=== PATIENT | male | born 1945 | race Caucasian/White ===

== ENCOUNTER 2019-08-13 10:26 | Inpatient (IN) | payer MEDICARE, OTHER ==
[2019-08-13] VITALS (7 sets, daily range): BP systolic 114–130; BP diastolic 70–96
[~2019-08-13] VITALS: Ht 175.3 cm; Wt 89.4 kg
[~2019-08-13 10:26] MED LIST: ASPIRIN CHEW81 MG PO; INDERAL LA60 M1; METFORMIN HCL500 MG PO; SIMVASTATIN5 MG; Z.0.GLUCOPHAGE500 MG; Z.0.ZOCOR20 MG; [UNRECOGNIZED DRUG - OTHER]
[2019-08-13] MEDS ORDERED: LIDOCAINE HCL 1% LOCAL INJ 20 ML VIAL ONE (11:13)
[2019-08-13 11:37] LABS: BASOPHILS % 0.3 % (0.0-1.0); EOSINOPHILS # (AUTO) 0.2 (0.0-0.4); EOSINOPHILS % 2.8 % (0.0-6.0); HEMATOCRIT 42.6 % (38.2-49.6); HEMOGLOBIN 14.3 g/dL (14.0-18.0); LYMPHOCYTES # (AUTO) 1.5 (1.0-3.2); LYMPHOCYTES % 22.4 % (18.0-39.1); MEAN CORPUSCULAR HEMOGLOBIN 30.2 pg (28-32); MEAN CORPUSCULAR HGB CONC 33.6 g/dL (31-35); MEAN CORPUSCULAR VOLUME 89.9 fL (81-99); MONOCYTES # (AUTO) 0.6 (0.2-0.8); MONOCYTES % 8.8 % (4.4-11.3); NEUTROPHILS # (AUTO) 4.2 (2.1-6.9); NEUTROPHILS % 65.1 % (38.7-80.0); PLATELET COUNT 144 x10e3/uL (140-360); RED BLOOD COUNT 4.74 x10e6/uL (4.3-5.7)
[2019-08-13] MEDS ORDERED: BACITRACIN ZINC 0.9GM TP ONE (11:45)
[2019-08-13 11:59] LABS: ALANINE AMINOTRANSFERASE 31 IU/L (0-55); ALBUMIN 3.3 g/dL (3.5-5.0); ALKALINE PHOSPHATASE 84 IU/L (40-150); ANION GAP 11.1 mmol/L (8-16); BLOOD UREA NITROGEN 23 mg/dL (7-26); BUN/CREATININE RATIO 13 (6-25); CALCIUM 9.2 mg/dL (8.4-10.2); CARBON DIOXIDE 25 mmol/L (22-29); CHLORIDE 107 mmol/L (98-107); CREATINE KINASE 36 IU/L (30-200); CREATININE, SERUM 1.72 mg/dL (0.72-1.25); EST GLOMERULAR FILTRATION RATE 39 ML/MIN (60-); GLUCOSE 163 mg/dL (74-118); POTASSIUM 5.1 mmol/L (3.5-5.1); SODIUM 138 mmol/L (136-145)
[2019-08-13 12:24] LABS: CREATINE KINASE MB < 1.00 ng/mL (0-4.3)
[2019-08-13] MEDS ORDERED: IOPAMIDOL 370 MG/ML 200 ML INFUS..BTL INJ ONE (13:04)
[2019-08-13] MEDS ORDERED: SODIUM CHLORIDE 0.9% 50ML 50 ML ONE (13:04)
[2019-08-13] MEDS ORDERED: SODIUM CHLORIDE 0.9% 1000ML 1,000 ML ONE (13:09)
[2019-08-13] MEDS ORDERED: SODIUM CHLORIDE 0.9% 1000ML 1,000 ML IV ONE (13:15)
[2019-08-13] MEDS ORDERED: HEPARIN 25,000 UNIT 1,400 UNIT in DEXTROSE 5% 250ML 250 ML IV SCH (14:00)
[2019-08-13] MEDS ORDERED: HEPARIN SOD (PORCINE) 5,000 UNIT/ML VIAL IV ONE ×3 (14:00→16:15)
[2019-08-13] MEDS ORDERED: MORPHINE SULFATE 2 MG/ML SYR 1ML IV PRN (14:15)
[2019-08-13] MEDS ORDERED: ONDANSETRON HCL INJ 2MG/ML 2ML 2 MG/ML VIAL IV PRN (14:15)
--- NOTE | 2019-08-13 14:17 | Diagnostic Imaging Report ---
Exam: CT pulmonary angiogram Clinical History: Shortness of breath Technique: Helical images of the chest were obtained after IV contrast administration using the pulmonary embolism protocol. Findings: Intraluminal filling defect is noted in the distal right main pulmonary artery extending to both the upper and lower lobe branches. In addition, intraluminal filling defects are also noted in the secondary and tertiary branches of the left upper and lower lobe pulmonary arteries. There is no evidence of pulmonary edema, consolidation, pleural effusion, or pneumothorax. Tracheobronchial tree is clear. There is no evidence of mediastinal or hilar adenopathy. The cardiac size is within normal limits. The great vessels are normal in caliber and configuration. The visualized upper abdominal solid organs are unremarkable. Punctate calcifications are noted in the lateral renal pelvis which may represent nephrolithiasis versus vascular calcifications. Impression: 1. Large bilateral pulmonary emboli. Dr. Riggs of the ER service was notified of the above findings on August 13, 2019 at 1410 hours. Signed by: Dr. Tai Obando MD on 08/13/2019 2:13 PM
--- NOTE | 2019-08-13 14:29 | Diagnostic Imaging Report ---
Exam: Head CT without contrast History: Syncope Comparison studies: None Technique: Axial images were obtained from the skull base to the vertex. Coronal and sagittal images reconstructed from the axial data. Dose modulation, iterative reconstruction, and/or weight based adjustment of the mA/kV was utilized to reduce the radiation dose to as low as reasonably achievable. Radiation dose: Total DLP: 921 mGy*cm. Estimated effective dose: DLP x 0.015 Intravenous contrast: None Findings: Soft tissues: Right anterior prezygomatic soft tissue swelling. No retained hyperdense foreign body. Bones: No fractures, blastic or lytic lesions. Brain sulci: Sulci at the convexity are mildly effaced. Moderately prominent sylvian fissures. Ventricles: Moderately dilated lateral and third ventricles which is nonspecific it may be related to degree of central greater peripheral cortical volume or normal pressure hydrocephalus (NPH) in the appropriate clinical setting. No acute hydrocephalus. Extra-axial spaces: No masses, no fluid collection. Parenchyma: No mass, acute hemorrhage or acute or chronic cortical insults. Sellar/suprasellar region: No abnormalities. Craniocervical junction: Patent foramen magnum. No Chiari one malformation. Incidental findings: Atherosclerotic calcifications in the carotid siphons and intradural vertebral arteries. IMPRESSION: 1. Right anterior prezygomatic soft tissue swelling. No fracture. 2. No acute intracranial abnormalities. 3. Generalized parenchymal volume loss. 4. Nonspecific supratentorial ventriculomegaly. Consider NPH in the appropriate clinical setting. Signed by: Dr. Gordon Byrnes M.D. on 08/13/2019 2:26 PM
[2019-08-13] MEDS ORDERED: HEPARIN IV SCH (15:30)
[2019-08-13] MEDS ORDERED: DEXTROSE 5% IV SCH (15:30)
[2019-08-13] MEDS: HEPARIN 25,000 UNIT 1,400 UNIT in DEXTROSE 5% 250ML 250 ML IV SCH (15:39)
--- OUTSIDE RECORDS SUMMARY | 2019-08-13 15:44 | XMS REPORT ---
Author Author [facility] Address Unknown Phone Unavailable Care Team Providers Care Funeral Planner Name Role Phone VICTOR MANUEL MURPHY Unavailable Unavailable Problems This patient has no known problems. Allergies, Adverse Reactions, Alerts This patient has no known allergies or adverse reactions. Medications This patient has no known medications. Results Test Description Test Time Test Comments Text Results Atomic Results Result Comments CT BRAIN WO 2019-08-13 14:18:00 [facility] [address] [address] Patient Name: NESS MARTIN MR #: [id number] : 1945 Age/Sex: 74/M Req #: [id number] Adm Physician: Ordered by: LEVON RIGGS DO Report #: [id number] Location: ER Room/Bed: Procedure: [id number] CT/CT BRAIN WO Exam Date: 08/13/19 Exam Time: 1330 REPORT STATUS: Signed Exam: Head CT without contrast History: Syncope Comparison studies: None Technique: Axial images were obtained from the skull base to the vertex. Coronal and sagittal images reconstructed from the axial data. Dose modulation, iterative reconstruction, and/or weight based adjustment of the mA/kV was utilized to reduce the radiation dose to as low as reasonably achievable. Radiation dose: Total DLP: 921 mGy*cm. Estimated effective dose: DLP x 0.015 Intravenous contrast: None Findings: Soft tissues: Right anterior prezygomatic soft tissue swelling. No retained hyperdense foreign body. Bones: No fractures, blastic or lytic lesions. Brain sulci: Sulci at the convexity are mildly effaced. Moderately prominent sylvian fissures. Ventricles: Moderately dilated lateral and third ventricles which is nonspecific it may be related to degree of central greater peripheral cortical volume or normal pressure hydrocephalus (NPH) in the appropriate clinical setting. No acute hydrocephalus. Extra-axial spaces: No masses, no fluid collection. Parenchyma: No mass, acute hemorrhage or acute or chronic cortical insults. Sellar/suprasellar region: No abnormalities. Craniocervical junction: Patent foramen magnum. No Chiari one malformation. Incidental findings: Atherosclerotic calcifications in the carotid siphons and intradural vertebral arteries. IMPRESSION: 1. Right anterior prezygomatic soft tissue swelling. No fracture. 2. No acute intracranial abnormalities. 3. Generalized parenchymal volume loss. 4. Nonspecific supratentorial ventriculomegaly. Consider NPH in the appropriate clinical setting. Signed by: Dr. Wilbert Byrnes M.D. on 08/13/2019 2:26 PM Dictated By: WILBERT BYRNES MD 142 Transcribed By: LAUREN on 08/13/19 1426 COPY TO: LEVON RIGGS DO CT CHEST W 2019-08-13 14:08:00 [address] [address] Patient Name: NESS MARTIN MR #: [id number] : 1945 Age/Sex: 74/M Req #: [id number] Adm Physician: Ordered by: LEVON RIGGS DO Report #: [id number] Location: Room/Bed: Procedure: CT/CT CHEST W Exam Date: 08/13/19 Exam Time: 1330 REPORT STATUS: Signed Exam: CT pulmonary angiogram Clinical History: Shortness of b reath Technique: Helical images of the chest were obtained after IV contrast administration using the pulmonary embolism protocol. Findings: Intraluminal filling defect is noted in the distal right main pulmonary artery extending to both the upper and lower lobe branches. In addition, intraluminal filling defects are also noted in the secondary and tertiary branches of the left upper and lower lobe pulmonary arteries. There is no evidence of pulmonary edema, consolidation, pleural effusion, or pneumothorax. Tracheobronchial tree is clear. There is no evidence of mediastinal or hilar adenopathy. The cardiac size is within normal limits. The great vessels are normal in caliber and configuration. The visualized upper abdominal solid organs are unremarkable. Punctate calcifications are noted in the lateral renal pelvis which may represent nephrolithiasis versus vascular calcifications. Impression: 1. Large bilateral pulmonary emboli. Dr. Riggs of the ER service was notified of the above findings on August 13, 2019 at 1410 hours. Signed by: Dr. Tai Obando MD on 08/13/2019 2:13 PM Dictated By: WOODY OBANDO MD 1413 Transcribed By: LAUREN on 08/13/19 1413 COPY TO: LEVON RIGGS DO
[2019-08-13] MEDS: SODIUM CHLORIDE 0.9% 1000ML 1,000 ML IV SCH (16:34)
[2019-08-13] MEDS ORDERED: LISINOPRIL5 MG PO (17:30)
[2019-08-13] MEDS ORDERED: MYSOLINE250 MG PO (17:30)
[2019-08-13] MEDS ORDERED: JANUVIA50 MG PO (17:30)
[2019-08-13] MEDS ORDERED: PROPRANOLOL HCL60 MG PO (17:30)
[2019-08-13] MEDS ORDERED: SIMVASTATIN20 MG PO (17:30)
[2019-08-13] MEDS ORDERED: GLIMEPIRIDE4 MG PO (17:30)
[2019-08-13] MEDS ORDERED: FLOMAX0.4 MG PO (17:30)
[2019-08-13] MEDS ORDERED: OZEMPIC SQ (17:32)
[2019-08-13] MEDS: MORPHINE SULFATE INJ 4 MG/ML INJ 1ML IV PRN (19:55)
--- NOTE | 2019-08-13 21:40 | History and Physical ---
HISTORY OF PRESENT ILLNESS: The patient is a 74-year-old male with past medical history positive for diabetes and hypertension. He collapsed at home, had a cut on his face, had some stitches placed, came to the emergency room. CT of the head did not show any significant abnormalities, but the chest CT showed a massive pulmonary embolism in the right pulmonary artery. The patient was immediately started on IV heparin. REVIEW OF SYSTEMS: CARDIOVASCULAR: No chest pain or palpitation. RESPIRATORY: No shortness of breath. No cough. GASTROINTESTINAL: No nausea or vomiting. No diarrhea. GENITOURINARY: No frequency. No dysuria. ALLERGIES: HE IS ALLERGIC TO SULFA DRUGS. SOCIAL HISTORY: He does not smoke. He does not drink. PAST MEDICAL HISTORY: Hypertension and diabetes. PHYSICAL EXAMINATION: HEART: Showed regular rhythm. Normal S1 and S2 sound. LUNGS: Clear bilaterally. ABDOMEN: Soft. EXTREMITIES: Show no evidence of cyanosis, edema, or trauma associated before. FINAL IMPRESSION: 1. Pulmonary embolism. 2. Syncopal episode. 3. Uncontrolled diabetes mellitus type 2. 4. Hypertension. PLAN OF TREATMENT: We are going to continue the heparin drip. Continue monitoring PT and PTT according to the heparin protocol. Resume home medication except the metformin due to the fact that the patient had a CT recently. Dr. West to be consulted from the Cardiology point of view and Dr. Li from the Pulmonary point of view. The patient going to be admitted to the intensive care unit. Diabetic diet. Continue telemetry. We are going to also consult Dr. Dan, Hematology/Oncology to find out why the patient had a pulmonary embolism. The patient has no evidence of any DVT in the lower extremities either. Time spent around 55 minutes. Discussed with the family and the emergency room physician. MD DA Flores/GOLDY /[id number]
--- NOTE | 2019-08-13 23:11 | Consultation ---
DATE OF CONSULTATION: 08/13/2019 Pulmonary Medicine Consult ADDITIONAL REFERRING PHYSICIAN: Dr. Evans. REASON FOR CONSULT: Pulmonary emboli. HISTORY OF PRESENT ILLNESS: Mr. Gr is a pleasant 74-year-old gentleman with bilateral pulmonary emboli. The patient was in baseline routine level function mostly. Two weeks ago, he was walking when he incurred spontaneous shortness of breath, which was unexpected onset and first time incurred this. However, he was able to continue doing his exertional job without incident. Today, the patient was unsuspecting when he was walking around and he fainted. He had loss of consciousness. The patient injured the right side of his face with laceration periocularly to right cheek. A 2.5 cm length closure was required with stitches. At this point, blood pressure sustained with heart rate 80s to 90s. He underwent CT angiography, which demonstrated bilateral PE of moderate to large burden, 31 mm main pulmonary artery trunk, otherwise unremarkable. History of GERD. No asthma. Allergic rhinitis is perennial. The patient without any herbal medicines. No vitamins. No recent long trips. No history of any significant fractures of lower extremities. The patient did undergo ultraviolet dermatologic screening 2 days ago, for which he has an erythematous forehead and upper cheeks as part of his cancer screening. No history of . PAST MEDICAL HISTORY: GERD, allergic rhinitis, diabetes, hypertension, hyperlipidemia, history of back surgery long ago. MEDICATIONS: Medication list reviewed per the chart record. ALLERGIES: SULFA. SOCIAL HISTORY: No smoking. No drinking. No drugs. 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 He continued to work as [employer] until he retired 5 years ago. His hobbies are with his grandchildren. He lives with his . FAMILY HISTORY: Noncontributory. He has 10 siblings, none of which had pulmonary emboli or DVT that he knows of. REVIEW OF SYSTEMS: GENERAL: No weight changes. OPHTHALMOLOGIC: No double vision. ENT: No mouth ulcers. ENDOCRINE: No known thyroid disease. LUNGS: No hemoptysis. CARDIAC: No heart attack. GI: No constipation. : No blood in urine. DERMATOLOGIC: No chronic rash. NEUROLOGIC: No seizures. PSYCHIATRIC: No depression. OBJECTIVE: VITAL SIGNS: Afebrile, vital signs noted and reviewed per electronic record. Heart rate 80, blood pressure 114/76, oxygen saturation 95%. GENERAL: No distress, calm in bed. HEENT: Normocephalic, posttraumatic with mild swelling to right cheek and right forehead. NECK: Supple. Throat midline. LUNGS: Bilateral air entry, limited, but clear. CARDIOVASCULAR: S1 and S2. No murmurs, rubs, or gallops. ABDOMEN: Soft, nontender. EXTREMITIES: No clubbing. No cyanosis. There is no edema. INTEGUMENT: No rash. No purpura. LABORATORY DATA: Potassium 5.1, BUN 23, creatinine 1.7. White count 7, hematocrit 43, platelets 144. LFTs unremarkable. IMPRESSION AND PLAN: 1. Submassive pulmonary embolism. 2. Syncope due to pulmonary embolism. 3. Allergic rhinitis. 4. Gastroesophageal reflux disease. 5. Hypertension. 6. Diabetes. 7. Chronic kidney disease. 8. Hyperlipidemia. Heparin drip reasonable due to chronic kidney disease. Continue aggressive therapy. Check echocardiogram to stratify his cardiac status. Unclear ramification of the presyncope or at least shortness of breath episode he had 2 weeks ago, but possibility of chronicity of embolic/thrombotic events. As of now, this is a spontaneous pulmonary embolism and without further changes in diagnostics, he will require lifetime anticoagulation. We will follow along closely. Routine cancer screening is indicated and as said he has had colon and prostatic screening. Thank you very much, Dr. Gomez and Dr. Evans, for allowing me a chance to participate in care of Mr. Gr. Please call for questions. MD SNEHAL Carlson/MODL /[id number]
[2019-08-14] VITALS (23 sets, daily range): BP systolic 101–143; BP diastolic 66–113
[2019-08-14] MEDS: MORPHINE SULFATE INJ 4 MG/ML INJ 1ML IV PRN ×2 (00:46→13:20)
[2019-08-14] MEDS: SODIUM CHLORIDE 0.9% 1000ML 1,000 ML IV SCH ×3 (01:22→17:27)
[2019-08-14 03:42] LABS: BASOPHILS % 0.3 % (0.0-1.0); EOSINOPHILS # (AUTO) 0.3 (0.0-0.4); EOSINOPHILS % 3.8 % (0.0-6.0); HEMATOCRIT 36.5 % (38.2-49.6); HEMOGLOBIN 12.5 g/dL (14.0-18.0); LYMPHOCYTES # (AUTO) 2.4 (1.0-3.2); LYMPHOCYTES % 36.2 % (18.0-39.1); MEAN CORPUSCULAR HEMOGLOBIN 30.6 pg (28-32); MEAN CORPUSCULAR HGB CONC 34.2 g/dL (31-35); MEAN CORPUSCULAR VOLUME 89.5 fL (81-99); MONOCYTES # (AUTO) 0.6 (0.2-0.8); NEUTROPHILS # (AUTO) 3.4 (2.1-6.9); NEUTROPHILS % 50.2 % (38.7-80.0); PLATELET COUNT 128 x10e3/uL (140-360); RED BLOOD COUNT 4.08 x10e6/uL (4.3-5.7); RED CELL DISTRIBUTION WIDTH 13.2 % (11.7-14.4)
[2019-08-14 04:01] LABS: CALCIUM 8.4 mg/dL (8.4-10.2); CREATININE, SERUM 1.34 mg/dL (0.72-1.25)
--- NOTE | 2019-08-14 07:00 | NUR ---
Report rec'd from GUIDO Waddell. Patient alert, oriented, resting with NS at 125 and heparin at 1065. Next PTT to be drawn at 0900. Patient with no signs of bleeding, no complaint at present.
--- NOTE | 2019-08-14 08:13 | NUR ---
ECHO done at bedside. Patient sitting up in bed eating breakfast.
--- NOTE | 2019-08-14 09:55 | NUR ---
Patient sitting up in recliner after ambulating to the toilet. Dr Lonny West to bedside; Dr Dan contacted by Dr Lonny West.
[2019-08-14] MEDS: HEPARIN 25,000 UNIT 1,400 UNIT in DEXTROSE 5% 250ML 250 ML IV SCH (10:55)
--- NOTE | 2019-08-14 11:43 | Consultation ---
DATE OF CONSULTATION: Cardiac Consultation REASON FOR CONSULTATION: Evaluate cardiac status, pulmonary embolism, exertional chest pressure, chest tightness, shortness of breath of 4 months duration. HISTORY OF PRESENT ILLNESS: A 74-year-old gentleman in his usual status of health. He is known with longstanding history of diabetes mellitus for the last 30 years, hypertension, and hyperlipidemia. The patient is relatively very active. He is not sedentary at all. His other problem is repeated skin cancer seen several times by Dr. Valencia. Recently, they "painted his face" and they started laser treatment on his skin, but those treatment will last 10 to 15 minutes. During that time, he is not stuck in small compartment or anything like that. Also, he denied having any recent travel. He is very active and is not sedentary at all. For the last 4 months, he is having exertional shortness of breath on exertion with some chest tightness. He does not his usual. However, there were no chest pain and no alarming symptoms. The patient works as [employer] and he had exposure to asbestos during his life. He is retired few years back. Yesterday, after he fed the cat and he went up to sit, he just passed out. He slammed his right face on the nightstand and he injured his knee. He wake up. There is no documented seizure. The patient was brought to this institution. He had laceration, which was sutured. His CT head showed no acute changes. His CT chest showed bilateral pulmonary emboli. Started on heparin. Cardiac consultation is obtained. His echocardiogram showed no right ventricular strain. The patient is seen and examined. He is comfortable. He is in intensive care unit. He denied having any chest pain now. He seems to be comfortable. He is having some discomfort in his face, where he had a fall and his left pelaez. His cardiac symptoms are described above. There is no orthopnea. There is no paroxysmal nocturnal dyspnea. There is no syncope or presyncope. REVIEW OF SYSTEMS: Very very very extensive to all system and will be summarized for clarity. GENERAL: No fever. No chills. No night sweats. No weight loss. No weight gain. No poor appetite. HEENT: No vision problem. No hearing problem. PULMONARY AND CARDIAC: No pleuritic chest pain. No cough. No hemoptysis. No recent travel. Exertional chest pressure, chest tightness and shortness of breath on exertion going on for 4 months. No orthopnea. No paroxysmal nocturnal dyspnea. No palpitation. No syncope or presyncope. GI: No hematemesis. No melena. : No hematuria. No dysuria. MUSCULOSKELETAL: No aches. No pain. SKIN: Easy bruising used to be on aspirin. Stopped because of "whenever I touch, I will bleed under my skin." Several skin lesions, several repeated skin cancer. In fact, the patient had recently painting on his face with ultraviolet treatment. ENDOCRINE: The patient is diabetic, on treatment with no variation in blood sugar. No heat, no cold intolerance. The rest of the systems were negative except for what mentioned above. SOCIAL HISTORY: He is . He is nonsmoker. He is social alcohol drinker. He is retired longshoreman. PAST MEDICAL HISTORY: Hypertension, diabetes mellitus, hyperlipidemia, back surgery, right and left inguinal hernia surgery, skin cancer, LASIK eye surgery, and GERD. HOME MEDICATIONS: Lisinopril 5 mg a day, Inderal LA 60 mg twice a day, Amaryl 4 mg a day, Januvia 50 mg a day, Flomax 0.4 mg a day, and Mysoline 250 mg twice a day. ALLERGIES: SULFA. FAMILY HISTORY: Father of lung cancer at age 65. Mother of septic shock. She was diabetic. She was 67. Nine siblings, 3 brothers and 6 sisters. Two of them are diabetic, but no history of premature coronary artery disease. Five children, 3 sons and 2 daughters. He lost a son at very very young age. PHYSICAL EXAMINATION: GENERAL: Well-built gentleman, in no acute distress. VITAL SIGNS: Height of 5 feet 9 inches, weight of 179 pounds, blood pressure 100/60, heart rate of 80, respiratory rate of 18, and temperature of 98 Fahrenheit. HEENT: Remarkable for skin discoloration over the skin. He was having ultraviolet treatment. There is dressing over the right cheek. NECK: No elevation of jugular venous pulsation. No bruit. CHEST: Clear to auscultation and percussion. HEART: PMI 5th intercostal space. Normal first and second heart sounds. ABDOMEN: Soft with good bowel sounds. No organomegaly. No abdominal bruits. EXTREMITIES: Easy bruising. Over the left pelaez, there is area where there is trauma and the bruise. Pulses are equal. No delay between pulses. No signs of deep venous thrombosis. NEUROLOGIC: Awake, alert, and oriented. Able to move his extremities. SKIN: There are several skin lesions on the face and discoloration of the face from the ultraviolet light. LABORATORY DATA: Sodium of 140, potassium of 4, BUN of 18, creatinine of 1.34, and glucose of 124. White blood cell count of 6.7, hemoglobin 12.5, hematocrit 37%, and platelet count of 128,000. EKG showing normal sinus rhythm, nonspecific ST changes. CT chest showed bilateral pulmonary emboli in the right and left lung. CT head showed no acute changes. IMPRESSION AND PLAN: 1. Bilateral pulmonary emboli with no predisposing factors. This make me worry for cause such as underlying malignancy. 2. Diabetes mellitus. 3. Hypertension. 4. Repeated skin cancer. 5. Four months duration of shortness of breath and tightness rather than chest pain. This unlikely to be manifestation of repeated pulmonary emboli, probably there is another problem, which is coronary artery disease in this gentleman, who has had several risk factor for coronary artery disease. Regardless, the treatment are the same. Now we need to address the pulmonary embolism. He is on heparin, which I will concur with. His echocardiogram showed no right ventricular involvement. We need to look for underlying malignancy and another cause for his pulmonary emboli. We will check venous Doppler. We will resume his beta-fifi when his blood pressure is a little bit better. Pending on his course in the future, further evaluation should be done for his coronary artery disease if no underlying malignancy was found. Prognosis is really related to the cause of his pulmonary embolism and his other problem. We will follow the patient's progression with you. This was long visit for almost 70 minutes with discussion and explanation for the patient. I contacted Dr. Dna to see him of Hematology Service and we discussed the case. MD HAILEY Riley/GOLDY /[id number]
--- NOTE | 2019-08-14 15:07 | NUR ---
PULMONARY MEDICINE Date of encounter: 08/14/19 SUBJECTIVE: tolerating heparin iv ns at 75/ RA fio2 REVIEW OF SYSTEMS: NO headaches, no rash OBJECTIVE: VITAL SIGNS: vital signs noted and reviewed per electronic record GENERAL: No distress, calm in bed. HEENT: Normocephalic, mild swelling to right cheek NECK: Supple. Throat midline. LUNGS: Bilateral air entry, limited, but clear. CARDIOVASCULAR: S1 and S2. No murmurs, rubs, or gallops. ABDOMEN: Soft, nontender. EXTREMITIES: No clubbing. No cyanosis. no edema. INTEGUMENT: No rash. No purpura. LABORATORY DATA: 4.0 k, cr 1.34 wbc 7, hct 37 IMPRESSION AND PLAN: 1. Submassive pulmonary embolism. 2. Syncope with injury, due to pulmonary embolism. 3. Allergic rhinitis. 4. Gastroesophageal reflux disease. 5. Hypertension. 6. Diabetes. 7. Chronic kidney disease. 8. Hyperlipidemia. Heparin drip iv Warfarin per hematology LIfetime need for anticoagulation likely Follow echocardiogram to stratify his cardiac status Thank you very much, Dr. Gomez and Dr. Evans, for allowing me a chance to participate in care of Mr. Gr. Please call for questions.
[2019-08-14 15:48] LABS: INR 0.99; PROTHROMBIN TIME 13.6 seconds (11.9-14.5)
[2019-08-14] MEDS: WARFARIN SOD 5 MG TAB PO SCH (17:26)
[2019-08-14] MEDS ORDERED: HEPARIN 25,000 UNIT DRIP IV ONE (17:59)
[2019-08-15] VITALS (21 sets, daily range): BP systolic 116–140; BP diastolic 67–104
[2019-08-15] MEDS: SODIUM CHLORIDE 0.9% 1000ML 1,000 ML IV SCH ×2 (03:32→19:15)
[2019-08-15 04:15] LABS: BASOPHILS % 0.3 % (0.0-1.0); EOSINOPHILS # (AUTO) 0.3 (0.0-0.4); EOSINOPHILS % 4.2 % (0.0-6.0); HEMATOCRIT 35.4 % (38.2-49.6); HEMOGLOBIN 11.5 g/dL (14.0-18.0); LYMPHOCYTES % 33.2 % (18.0-39.1); MEAN CORPUSCULAR HEMOGLOBIN 29.7 pg (28-32); MEAN CORPUSCULAR HGB CONC 32.5 g/dL (31-35); MEAN CORPUSCULAR VOLUME 91.5 fL (81-99); MONOCYTES # (AUTO) 0.5 (0.2-0.8); MONOCYTES % 8.5 % (4.4-11.3); NEUTROPHILS # (AUTO) 3.3 (2.1-6.9); NEUTROPHILS % 53.6 % (38.7-80.0); PLATELET COUNT 122 x10e3/uL (140-360); RED BLOOD COUNT 3.87 x10e6/uL (4.3-5.7); RED CELL DISTRIBUTION WIDTH 13.2 % (11.7-14.4)
[2019-08-15 04:53] LABS: ALBUMIN 2.7 g/dL (3.5-5.0); ALBUMIN/GLOBULIN RATIO 1.1 (0.8-2.0); CALCIUM 7.8 mg/dL (8.4-10.2); CHOL/HDL RATIO 3.3 (3.9-4.7); CREATININE, SERUM 1.19 mg/dL (0.72-1.25)
[2019-08-15 05:18] LABS: THYROID STIMULATING HORMONE 1.385 uIU/mL (0.350-4.940)
[2019-08-15] MEDS: HEPARIN 25,000 UNIT 1,400 UNIT in DEXTROSE 5% 250ML 250 ML IV SCH (10:00)
--- NOTE | 2019-08-15 16:13 | NUR ---
PULMONARY MEDICINE Date of encounter: 08/15/19 SUBJECTIVE: not dizzy RA fio2 heparin IV NS at 125/hr ivf REVIEW OF SYSTEMS: No headaches, no rash OBJECTIVE: VITAL SIGNS: vital signs noted and reviewed per electronic record GENERAL: No distress, calm in bed. HEENT: Normocephalic, mild swelling to right cheek NECK: Supple. Throat midline. LUNGS: Bilateral air entry, limited, but clear. CARDIOVASCULAR: S1 and S2. No murmurs, rubs, or gallops. ABDOMEN: Soft, nontender. EXTREMITIES: No clubbing. No cyanosis. no edema. INTEGUMENT: No rash. No purpura. LABORATORY DATA: ptt 85. cr 1.19 IMPRESSION AND PLAN: 1. Submassive pulmonary embolism. 2. Syncope with injury, due to pulmonary embolism. 3. Allergic rhinitis. 4. Gastroesophageal reflux disease. 5. Hypertension. 6. Diabetes. 7. Chronic kidney disease. 8. Hyperlipidemia. Heparin drip iv Warfarin loading per hematology Lifetime need for anticoagulation still likely Follow final echocardiogram to stratify his cardiac status - reported no severe right heart strain so far Thank you very much, Dr. Gomez and Dr. Evans, for allowing me a chance to participate in care of Mr. Gr. Please call for questions.
[2019-08-15] MEDS: WARFARIN SOD 5 MG TAB PO SCH (18:02)
[2019-08-16] VITALS (21 sets, daily range): BP systolic 113–139; BP diastolic 66–113
[2019-08-16] MEDS: SODIUM CHLORIDE 0.9% 1000ML 1,000 ML IV SCH ×5 (03:41→21:26)
[2019-08-16] MEDS: MORPHINE SULFATE INJ 4 MG/ML INJ 1ML IV PRN ×2 (03:50→13:04)
[2019-08-16] MEDS ORDERED: HEPARIN 25,000 UNIT DRIP IV ONE (07:42)
--- NOTE | 2019-08-16 09:15 | NUR ---
Dr Dan to bedside; states he needs the HIT (confirmed with Dr Dan via phone) lab he ordered STAT. Spoke with lab and they are attempting to get [facility] to run it STAT as it is a send out. VJ to call back.
--- NOTE | 2019-08-16 10:00 | NUR ---
Dr Dan made aware the HIT lab cannot be done STAT.
[2019-08-16] MEDS ORDERED: OZEMPIC 0.5 MG SQ SCH (10:30)
--- NOTE | 2019-08-16 10:41 | NUR ---
0968 Dr Lonny West to bedside. 101 Dr aKrson Evans to bedside; home meds restarted and orders to transfer to Med Surg with Tele when bed available.
--- NOTE | 2019-08-16 15:00 | NUR ---
Patient awake, alert, and answers orientation questions appropriately.
[2019-08-16] MEDS: WARFARIN SOD 5 MG TAB PO SCH (17:31)
[2019-08-16] MEDS: PROPRANOLOL HCL 60 MG ER CAP PO SCH (17:31)
[2019-08-16] MEDS: PRIMIDONE 250 MG TABLET PO SCH (17:32)
--- NOTE | 2019-08-16 18:20 | NUR ---
Dr Rose at bedside.
--- NOTE | 2019-08-16 20:30 | NUR ---
PTT 62.5. Continue heparin at 765units/hour. PTT in am.
[2019-08-16] MEDS: SIMVASTATIN 20 MG TAB PO SCH (21:26)
[2019-08-16 21:48] LABS: BASOPHILS % 0.4 % (0.0-1.0); EOSINOPHILS # (AUTO) 0.2 (0.0-0.4); EOSINOPHILS % 4.2 % (0.0-6.0); HEMATOCRIT 37.1 % (38.2-49.6); LYMPHOCYTES # (AUTO) 1.4 (1.0-3.2); LYMPHOCYTES % 27.3 % (18.0-39.1); MEAN CORPUSCULAR HEMOGLOBIN 30.2 pg (28-32); MEAN CORPUSCULAR HGB CONC 32.3 g/dL (31-35); MEAN CORPUSCULAR VOLUME 93.5 fL (81-99); MONOCYTES # (AUTO) 0.5 (0.2-0.8); MONOCYTES % 9.2 % (4.4-11.3); NEUTROPHILS % 58.5 % (38.7-80.0); PLATELET COUNT 138 x10e3/uL (140-360); RED BLOOD COUNT 3.97 x10e6/uL (4.3-5.7); RED CELL DISTRIBUTION WIDTH 13.3 % (11.7-14.4)
--- NOTE | 2019-08-16 22:10 | NUR ---
PULMONARY MEDICINE Date of encounter: 08/16/19 SUBJECTIVE: ultrasound leg with right popliteal DVT Oxygen at 2 L/m by nasal cannula heparin drip ongoing Normal saline at 125 REVIEW OF SYSTEMS: No headaches, no rash OBJECTIVE: VITAL SIGNS: vital signs noted and reviewed per electronic record GENERAL: No distress, calm in bed. HEENT: Normocephalic, mild swelling to right cheek NECK: Supple. Throat midline. LUNGS: Bilateral air entry, limited, but clear. CARDIOVASCULAR: S1 and S2. No murmurs, rubs, or gallops. ABDOMEN: Soft, nontender. EXTREMITIES: No clubbing. No cyanosis. no edema. INTEGUMENT: No rash. No purpura. LABORATORY DATA: 4.0 potassium, creatinine 1.2. 6 white count, 35 hematocrit, 122 platelets. IMPRESSION AND PLAN: 1. Submassive pulmonary embolism. 2. Syncope with injury, due to pulmonary embolism. 3. Allergic rhinitis. 4. Gastroesophageal reflux disease. 5. Hypertension. 6. Diabetes. 7. Chronic kidney disease. 8. Hyperlipidemia. Heparin drip iv Warfarin loading continue Lifetime need for anticoagulation apparent echocardiogram - no severe right heart strain so far supplemental oxygen, slow mobilization as tolerated with syncope precautions Thank you very much, Dr. Gomez and Dr. Evans, for allowing me a chance to participate in care of Mr. Gr. Please call for questions
[2019-08-17] VITALS (8 sets, daily range): BP systolic 110–122; BP diastolic 69–76
[2019-08-17 05:04] LABS: BASOPHILS % 0.3 % (0.0-1.0); EOSINOPHILS # (AUTO) 0.3 (0.0-0.4); EOSINOPHILS % 4.5 % (0.0-6.0); HEMATOCRIT 33.3 % (38.2-49.6); LYMPHOCYTES # (AUTO) 1.7 (1.0-3.2); LYMPHOCYTES % 28.5 % (18.0-39.1); MEAN CORPUSCULAR HEMOGLOBIN 30.5 pg (28-32); MEAN CORPUSCULAR VOLUME 92.2 fL (81-99); MONOCYTES # (AUTO) 0.5 (0.2-0.8); MONOCYTES % 8.6 % (4.4-11.3); NEUTROPHILS # (AUTO) 3.4 (2.1-6.9); NEUTROPHILS % 57.8 % (38.7-80.0); PLATELET COUNT 124 x10e3/uL (140-360); RED BLOOD COUNT 3.61 x10e6/uL (4.3-5.7); RED CELL DISTRIBUTION WIDTH 13.5 % (11.7-14.4)
[2019-08-17] MEDS: SODIUM CHLORIDE 0.9% 1000ML 1,000 ML IV SCH ×3 (05:19→19:15)
--- NOTE | 2019-08-17 05:20 | NUR ---
PTT 75.8. Continue heparin drip at 765 units/hr = 7.7 ml/hr. Continue protocol.
[2019-08-17 05:29] LABS: INR 1.08; PROTHROMBIN TIME 14.5 seconds (11.9-14.5)
[2019-08-17 06:47] LABS: EOSINOPHILS % (MANUAL) 3 % (0-7); LYMPHOCYTES % (MANUAL) 26 % (19-48); MONOCYTES % (MANUAL) 7 % (3.4-9.0); NEUTROPHILS % (MANUAL) 64 % (40-74); PLATELET ESTIMATE MODERATELY DECREASED
[2019-08-17 06:48] LABS: PLATELET MORPHOLOGY COMMENT FEW GIANT; RBC MORPHOLOGY COMMENT NORMAL
[2019-08-17] MEDS: GLIMEPIRIDE 2 MG TAB PO SCH (07:38)
[2019-08-17] MEDS: SITAGLIPTIN 100 MG TAB PO SCH (08:01)
[2019-08-17] MEDS: TAMSULOSIN HCL 0.4 MG CAP PO SCH (08:01)
[2019-08-17] MEDS: PRIMIDONE 250 MG TABLET PO SCH ×2 (08:01→17:21)
[2019-08-17] MEDS: LISINOPRIL 2.5 MG TAB PO SCH (08:02)
[2019-08-17] MEDS: PROPRANOLOL HCL 60 MG ER CAP PO SCH ×2 (08:02→17:21)
[2019-08-17] MEDS ORDERED: NON-FORMULARY MEDICATION (Sitagliptin Phosphate (Januvia) 50 MG) PO SCH (09:00)
[2019-08-17] MEDS ORDERED: NON-FORMULARY MEDICATION (Glimepiride 4 MG) PO SCH (09:00)
[2019-08-17] MEDS ORDERED: NON-FORMULARY MEDICATION (Lisinopril 5 MG) PO SCH (09:00)
--- NOTE | 2019-08-17 12:02 | NUR ---
RECEIVED REPORT FROM ABDIEL IN ICU AWAITING FOR PT TO ARRIVE TO FLOOR
--- NOTE | 2019-08-17 12:09 | NUR ---
Pt ambulated in hallway with physical therapy. Dr. Dan ordered PTT q6 hrs, even though patient has been therapeutic on heparin drip. Patient has medical surgical orders tele with O2 monitoring, patient to be transferred to med-surg 102. Report called to nurse.
--- NOTE | 2019-08-17 12:11 | NUR ---
1100- PTT 66.9 at 1100. Continue Heparin at current rate per protocol is therapeutic.
--- NOTE | 2019-08-17 12:40 | NUR ---
RECEIVED PT TO FLOOR [id number] FROM ICU PT IS SITTING UP IN CHAIR RESTING COMFORTABLY LEFT AC BLEEDING REMOVED APPLIED PRESSURE AND GAUZE TAPED AT THIS TIME RIGHT FA 20 WITH HEP AT 765 UNITS/HR AND NS AT 125 TO THE IV. SITE IS CLEAN AND DRY PT IS ON 02 2 L TOLERATING WELL WILL CONTINUE TO MONITOR CLOSELY SIDE RAILSX2, BED WHEELS LOCKED, CALL LIGHT IS WITHIN EASY REACH, INSTRUCTED TO CALL FOR ASSISTANCE IF NEEDED
[2019-08-17] MEDS: WARFARIN SOD 2.5 MG TAB PO SCH (17:21)
--- NOTE | 2019-08-17 18:32 | NUR ---
PTT IS 61.4 IN THERAPEUTIC RANGE. WILL MAINTAIN RATE 765 UNITS/ HR
[2019-08-17] MEDS: SIMVASTATIN 20 MG TAB PO SCH (20:31)
[2019-08-18] VITALS (9 sets, daily range): BP systolic 111–139; BP diastolic 60–77
[2019-08-18] MEDS: SODIUM CHLORIDE 0.9% 1000ML 1,000 ML IV SCH ×2 (03:00→18:50)
[2019-08-18 06:27] LABS: BASOPHILS % 0.2 % (0.0-1.0); EOSINOPHILS # (AUTO) 0.2 (0.0-0.4); EOSINOPHILS % 4.2 % (0.0-6.0); HEMATOCRIT 32.5 % (38.2-49.6); HEMOGLOBIN 10.7 g/dL (14.0-18.0); LYMPHOCYTES # (AUTO) 1.7 (1.0-3.2); LYMPHOCYTES % 29.3 % (18.0-39.1); MEAN CORPUSCULAR HEMOGLOBIN 30.2 pg (28-32); MEAN CORPUSCULAR HGB CONC 32.9 g/dL (31-35); MEAN CORPUSCULAR VOLUME 91.8 fL (81-99); MONOCYTES # (AUTO) 0.5 (0.2-0.8); MONOCYTES % 8.8 % (4.4-11.3); NEUTROPHILS # (AUTO) 3.2 (2.1-6.9); NEUTROPHILS % 56.8 % (38.7-80.0); PLATELET COUNT 124 x10e3/uL (140-360); RED BLOOD COUNT 3.54 x10e6/uL (4.3-5.7); RED CELL DISTRIBUTION WIDTH 13.2 % (11.7-14.4)
[2019-08-18 06:50] LABS: INR 1.17; PROTHROMBIN TIME 15.5 seconds (11.9-14.5)
[2019-08-18 08:07] LABS: EOSINOPHILS % (MANUAL) 5 % (0-7); LYMPHOCYTES % (MANUAL) 30 % (19-48); MONOCYTES % (MANUAL) 10 % (3.4-9.0); NEUTROPHILS % (MANUAL) 55 % (40-74)
[2019-08-18 08:08] LABS: PLATELET ESTIMATE MODERATELY DECREASED; RBC MORPHOLOGY COMMENT NORMAL
[2019-08-18] MEDS: GLIMEPIRIDE 2 MG TAB PO SCH (08:59)
[2019-08-18] MEDS: TAMSULOSIN HCL 0.4 MG CAP PO SCH (08:59)
[2019-08-18] MEDS: PROPRANOLOL HCL 60 MG ER CAP PO SCH ×2 (09:00→18:52)
[2019-08-18] MEDS: PRIMIDONE 250 MG TABLET PO SCH ×2 (09:03→18:52)
[2019-08-18] MEDS: LISINOPRIL 2.5 MG TAB PO SCH (09:03)
[2019-08-18] MEDS: SITAGLIPTIN 100 MG TAB PO SCH (09:03)
[2019-08-18] MEDS: WARFARIN SOD 2.5 MG TAB PO SCH (18:53)
--- NOTE | 2019-08-18 19:00 | NUR ---
RECEIVED PATIENT IN BEDSIDE REPORT. PATIENT RESTING IN BED AT THIS TIME, NO PAIN REPORTED, NO S&S OF DISTRESS NOTED. BED LOCKED IN LOWEST POSITION, SIDE RAILS UPX2, CALL LIGHT IN REACH.
[2019-08-18] MEDS: SIMVASTATIN 20 MG TAB PO SCH (20:16)
--- NOTE | 2019-08-18 21:29 | NUR ---
PULMONARY MEDICINE Date of encounter: 08/18/19 SUBJECTIVE: heparin drip IVF NS 125/hr diarrhea reported hemorrhoids REVIEW OF SYSTEMS: No headaches, no rash OBJECTIVE: VITAL SIGNS: vital signs noted and reviewed per electronic record GENERAL: No distress, calm in bed. HEENT: Normocephalic, mild swelling to right cheek NECK: Supple. Throat midline. LUNGS: Bilateral air entry, limited, but clear. CARDIOVASCULAR: S1 and S2. No murmurs, rubs, or gallops. ABDOMEN: Soft, nontender. EXTREMITIES: No clubbing. No cyanosis. no edema. INTEGUMENT: No rash. No purpura. LABORATORY DATA: ptt 78 6 wbc, hct 33 IMPRESSION AND PLAN: 1. Submassive pulmonary embolism. 2. Syncope with injury, due to pulmonary embolism. 3. Allergic rhinitis. 4. Gastroesophageal reflux disease. 5. Hypertension. 6. Diabetes. 7. Chronic kidney disease. 8. Hyperlipidemia. Heparin drip IV Warfarin loading continue Lifetime need for anticoagulation apparent echocardiogram - no severe right heart strain supplemental oxygen, slow mobilization as tolerated with syncope precautions decrease IVF Thank you very much, Dr. Gomez and Dr. Evans, for allowing me a chance to participate in care of Mr. Gr. Please call for questions
[2019-08-19] VITALS (7 sets, daily range): BP systolic 117–128; BP diastolic 70–86
[2019-08-19] MEDS: HEPARIN 25,000 UNIT 1,400 UNIT in DEXTROSE 5% 250ML 250 ML IV SCH ×2 (04:50→15:47)
[2019-08-19 06:29] LABS: INR 1.31; PROTHROMBIN TIME 16.9 seconds (11.9-14.5)
[2019-08-19] MEDS: SODIUM CHLORIDE 0.9% 1000ML 1,000 ML IV SCH ×2 (07:43→15:42)
[2019-08-19] MEDS: GLIMEPIRIDE 2 MG TAB PO SCH (07:43)
[2019-08-19] MEDS: PRIMIDONE 250 MG TABLET PO SCH ×2 (10:54→16:05)
[2019-08-19] MEDS: LISINOPRIL 2.5 MG TAB PO SCH (10:55)
[2019-08-19] MEDS: PROPRANOLOL HCL 60 MG ER CAP PO SCH ×2 (10:56→16:05)
[2019-08-19] MEDS: TAMSULOSIN HCL 0.4 MG CAP PO SCH (10:56)
[2019-08-19] MEDS: SITAGLIPTIN 100 MG TAB PO SCH (10:56)
--- NOTE | 2019-08-19 15:54 | NUR ---
Nutrition LOS Note RD Recommendation(s) for Physician / Nutrition Prescription: continue with diet as prescribed Plan of Care: Patient has been screened and assessed for nutrition risk. At this time, the patient does not pose any nutrition risk. No further nutrition intervention is warranted at this time. Will re-evaluate if consulted by medical staff. Nutrition reason for involvement: LOS Primary Dx: Submassive pulmonary embolism PMH: Hypertension and diabetes Ht: 69in Wt: 180lb BMI: 26.6kg/m2 IBW: 160lb +/- 10% RD Assessment: (08/19) 74yo M, who was admitted for pulmonary embolism. Visited pt in the room. Pt reported good appetite with 100% observed lunch intake. No GI complains reported. Pt denied any chewing or swallowing difficulty. No change with diet at home and weight has been stable. Current diet is appropriate and adequate. Malnutrition Evaluation (08/19/19) The patient does not meet criteria for a specified degree of malnutrition at this time. Will re-evaluate at follow-up as appropriate. Diet Education Needs Assessment: Diet education not indicated. Nutrition Care Level: Low Denita Merchant, MS, RD, LD
[2019-08-19] MEDS: WARFARIN SOD 2.5 MG TAB PO SCH (16:04)
--- NOTE | 2019-08-19 17:04 | NUR ---
PULMONARY MEDICINE Date of encounter: 08/19/19 SUBJECTIVE: heparin drip IVF NS 60/hr mobilizing REVIEW OF SYSTEMS: No headaches, no rash OBJECTIVE: VITAL SIGNS: vital signs noted and reviewed per electronic record GENERAL: No distress, calm in bed. HEENT: Normocephalic, mild swelling to right cheek NECK: Supple. Throat midline. LUNGS: Bilateral air entry, limited, but clear. CARDIOVASCULAR: S1 and S2. No murmurs, rubs, or gallops. ABDOMEN: Soft, nontender. EXTREMITIES: No clubbing. No cyanosis. no edema. INTEGUMENT: No rash. No purpura. LABORATORY DATA: ptt 78 IMPRESSION AND PLAN: 1. Submassive pulmonary embolism. 2. Syncope with injury, due to pulmonary embolism. 3. Allergic rhinitis. 4. Gastroesophageal reflux disease. 5. Hypertension. 6. Diabetes. 7. Chronic kidney disease. 8. Hyperlipidemia. Heparin drip IV Warfarin loading continue Lifetime need for anticoagulation apparent echocardiogram - no severe right heart strain supplemental oxygen while convenient, slow mobilization as tolerated with syncope precautions Thank you very much, Dr. Gomez and Dr. Evans, for allowing me a chance to participate in care of Mr. Gr. Please call for questions
--- NOTE | 2019-08-19 19:00 | NUR ---
RECEIVED PATIENT IN BEDSIDE SHIFT REPORT. PATIENT RESTING IN BED AT THIS TIME. NO PAIN REPORTED. NO S&S OF DISTRESS NOTED. IV TO R FA 20G ASYMPTOMATIC, INTACT, AND PATENT, RUNNING NS@60ML/HR AND HEPARIN@7.7ML/HR. NO SIGNS OF BLEEDING NOTED. BED LOCKED IN LOWEST POSITION, SIDE RAILS UPX2, CALL LIGHT IN REACH.
[2019-08-19] MEDS: SIMVASTATIN 20 MG TAB PO SCH (22:00)
[2019-08-20] MEDS: SODIUM CHLORIDE 0.9% 1000ML 1,000 ML IV SCH (00:10)
--- NOTE | 2019-08-20 07:00 | NUR ---
MORNING PTT 93.0 ACCORDING TO PROTOCOL RATE DECREASED BY 100 UNITS/HR HEPARIN DRIP NOW RUNNING AT 665 UNITS/HR NEXT PTT AT 1200
--- NOTE | 2019-08-20 07:09 | NUR ---
DOWNTIME DOCUMENTATION FILED IN PAPER CHART FOR VITAL SIGNS, NURSES NOTES, ASSESSMENT.
--- NOTE | 2019-08-20 07:26 | NUR ---
RECEIVED PATIENT RESTING IN BED NO S/S OF DISTRESS. BED LOW, WHEELS LOCKED, SIDE RAILS X2. CALL LIGHT IN REACH WILL CONTINUE TO MONITOR PATIENT
[2019-08-20 07:39] VITALS: BP 131/74
[2019-08-20] MEDS: TAMSULOSIN HCL 0.4 MG CAP PO SCH (08:15)
[2019-08-20] MEDS: GLIMEPIRIDE 2 MG TAB PO SCH (08:15)
[2019-08-20] MEDS: LISINOPRIL 2.5 MG TAB PO SCH (08:16)
[2019-08-20] MEDS: PROPRANOLOL HCL 60 MG ER CAP PO SCH ×2 (08:16→16:05)
[2019-08-20] MEDS: SITAGLIPTIN 100 MG TAB PO SCH (08:16)
[2019-08-20] MEDS: PRIMIDONE 250 MG TABLET PO SCH ×2 (08:16→16:05)
[2019-08-20 08:32] VITALS: BP 131/74
--- NOTE | 2019-08-20 10:03 | NUR ---
PATIENT A/O X3, EVEN RESPIRATIONS ON 1LNC. BOWEL SOUNDS ACTIVE, NO EDEMA. RIGHT FA 20 GAUGE IV WITH NS @ 60 CC/HR. HEPARIN DRIP INFUSING AT 665 UNITS/HR. PATIENT AMBULATES WITH STANDBY ASSIST. VS STABLE. CALL LIGHT IN REACH WILL CONTINUE TO MONITOR PATIENT.
[2019-08-20 10:11] LABS: INR 1.83; PROTHROMBIN TIME 21.8 seconds (11.9-14.5)
[2019-08-20] MEDS ORDERED: ACETAMINOPHEN 325 MG TAB PO PRN (10:45)
[2019-08-20 11:54] VITALS: BP 136/75
--- NOTE | 2019-08-20 12:26 | NUR ---
PTT 75.9 NO CHANGE IN RATE. HEPARIN DRIP REMAINS AT 665 UNITS/HR.
[2019-08-20 15:29] VITALS: BP 132/77
[2019-08-20] MEDS: WARFARIN SOD 2.5 MG TAB PO SCH (16:04)
--- NOTE | 2019-08-20 17:24 | Consultation ---
DATE OF CONSULTATION: 08/14/2019 HISTORY OF PRESENT ILLNESS: Mr. Gr is a 74-year-old male who presented with acute pulmonary embolus, which was unprovoked, subsequently referred to me for further evaluation and treatment. SOCIAL HISTORY: Noncontributory. FAMILY HISTORY: Noncontributory. ALLERGIES: REPORTED NONE. MEDICATIONS: At this time: 1. Dextrose. 2. Sodium chloride. 3. Ondansetron. 4. Morphine. 5. Heparin. REVIEW OF SYSTEMS: HEENT: Normal. CARDIAC: Normal. RESPIRATORY: Acute pulmonary embolus. GI: Normal. : Normal. MUSCULOSKELETAL: Normal. SKIN: Normal. BREASTS: Normal. NEUROENDOCRINE: Essentially normal. PHYSICAL EXAMINATION: GENERAL: A moderately built male, in distress with shortness of breath, at the present time on oxygen. NECK: No palpable adenopathy. HEART: Within normal limits. LUNGS: Clear. ABDOMEN: Soft. RECTAL: Deferred. CENTRAL NERVOUS SYSTEM: Essentially normal. LABORATORY DATA: Sodium 140, potassium 4.0, chloride 110, CO2 of 20, BUN 18, creatinine 1.34 with a glucose of 124. Hemoglobin 12.5, hematocrit 36.5, white count 6600, platelets 128,000. Bilirubin 0.3, SGOT 31, SGPT 20, alkaline phosphatase 84. The CAT scan shows the patient to have pulmonary emboli. The patient's potassium is 5.1, creatinine initially 1.72, albumin slightly low at 3.3 initially. Nephrolithiasis by CAT scan. IMPRESSION: 1. Acute pulmonary emboli, unprovoked. 2. Compromised renal functions. 3. Transient hyperkalemia. 4. Transient hyperglycemia. 5. Hypoalbuminemia. 6. Nephrolithiasis. PLAN, COMMENTS, AND SUGGESTIONS: Since this is unprovoked, suggest the patient to be on lifetime anticoagulation. Thrombophilia profile would be of academic interest. Thank you very much for allowing me to participate in the management of this patient. MD KJ Toscano/CAESARL /[id number] cc: MD Serge Riley MD George M Nassif, MD
[2019-08-20] MEDS: HEPARIN 25,000 UNIT 1,400 UNIT in DEXTROSE 5% 250ML 250 ML IV SCH (19:15)
--- NOTE | 2019-08-20 19:35 | NUR ---
PTT result 61.7. No change in rate per protocol.
[2019-08-20 20:00] VITALS: BP 127/73
[2019-08-20 20:12] VITALS: BP 127/73
[2019-08-20] MEDS: SIMVASTATIN 20 MG TAB PO SCH (20:32)
--- NOTE | 2019-08-20 23:23 | NUR ---
PULMONARY MEDICINE Date of encounter: 08/20/19 SUBJECTIVE: heparin drip IVF NS 60/hr 2L /min oxygen by NC eating BM REVIEW OF SYSTEMS: No headaches, no rash OBJECTIVE: VITAL SIGNS: vital signs noted and reviewed per electronic record GENERAL: No distress, calm in bed. HEENT: Normocephalic, mild swelling to right cheek NECK: Supple. Throat midline. LUNGS: Bilateral air entry, limited, but clear. CARDIOVASCULAR: S1 and S2. No murmurs, rubs, or gallops. ABDOMEN: Soft, nontender. EXTREMITIES: No clubbing. No cyanosis. no edema. INTEGUMENT: No rash. No purpura. LABORATORY DATA: ptt 93 IMPRESSION AND PLAN: 1. Submassive pulmonary embolism. 2. Syncope with injury, due to pulmonary embolism. 3. Allergic rhinitis. 4. Gastroesophageal reflux disease. 5. Hypertension. 6. Diabetes. 7. Chronic kidney disease. 8. Hyperlipidemia. Heparin drip IV Warfarin loading continue, repeat AM INR Lifetime need for anticoagulation apparent echocardiogram - no severe right heart strain supplemental oxygen while convenient in the hospital, mobilization as tolerated Thank you very much, Dr. Gomez and Dr. Evans, for allowing me a chance to participate in care of Mr. Gr. Please call for questions
[2019-08-21] VITALS (8 sets, daily range): BP systolic 123–136; BP diastolic 72–80
[2019-08-21] MEDS: SODIUM CHLORIDE 0.9% 1000ML 1,000 ML IV SCH ×2 (00:31→06:41)
--- NOTE | 2019-08-21 06:43 | NUR ---
PTT result 79.2 no change with Heparin Drip rate.
--- NOTE | 2019-08-21 07:00 | NUR ---
RECEIVED PATIENT RESTING IN BED NO S/S OF DISTRESS. BED LOW, WHEELS LOCKED, SIDE RAILS X2. CALL LIGHT IN REACH WILL CONTINUE TO MONITOR PATIENT.
[2019-08-21 07:54] LABS: INR 1.83; PROTHROMBIN TIME 21.8 seconds (11.9-14.5)
[2019-08-21] MEDS: TAMSULOSIN HCL 0.4 MG CAP PO SCH (08:42)
[2019-08-21] MEDS: PRIMIDONE 250 MG TABLET PO SCH ×2 (08:42→16:23)
[2019-08-21] MEDS: SITAGLIPTIN 100 MG TAB PO SCH (08:42)
[2019-08-21] MEDS: PROPRANOLOL HCL 60 MG ER CAP PO SCH ×2 (08:42→16:23)
[2019-08-21] MEDS: LISINOPRIL 2.5 MG TAB PO SCH (08:42)
[2019-08-21] MEDS: GLIMEPIRIDE 2 MG TAB PO SCH (08:42)
--- NOTE | 2019-08-21 14:32 | NUR ---
PULMONARY MEDICINE Date of encounter: 08/21/19 SUBJECTIVE: eating well BM heparin IV warfarin on, subtherapeutic REVIEW OF SYSTEMS: No headaches, no rash OBJECTIVE: VITAL SIGNS: vital signs noted and reviewed per electronic record GENERAL: No distress, calm in bed. HEENT: Normocephalic, mild swelling to right cheek NECK: Supple. Throat midline. LUNGS: Bilateral air entry, limited, but clear. CARDIOVASCULAR: S1 and S2. No murmurs, rubs, or gallops. ABDOMEN: Soft, nontender. EXTREMITIES: No clubbing. No cyanosis. no edema. INTEGUMENT: No rash. No purpura. LABORATORY DATA: inr 1.83, ptt 79 IMPRESSION AND PLAN: 1. Submassive pulmonary embolism. 2. Syncope with injury, due to pulmonary embolism. 3. Allergic rhinitis. 4. Gastroesophageal reflux disease. 5. Hypertension. 6. Diabetes. 7. Chronic kidney disease. 8. Hyperlipidemia. Heparin drip IV Warfarin loading continue, repeat AM INR Lifetime need for anticoagulation apparent echocardiogram - no severe right heart strain supplemental oxygen while convenient in the hospital, mobilization as tolerated Thank you very much, Dr. Gomez and Dr. Evans, for allowing me a chance to participate in care of Mr. Gr. Please call for questions
[2019-08-21] MEDS: WARFARIN SOD 2.5 MG TAB PO SCH (16:23)
[2019-08-21 17:07] LABS: BASOPHILS % 0.4 % (0.0-1.0); EOSINOPHILS # (AUTO) 0.3 (0.0-0.4); EOSINOPHILS % 4.9 % (0.0-6.0); HEMOGLOBIN 12.8 g/dL (14.0-18.0); LYMPHOCYTES # (AUTO) 1.7 (1.0-3.2); LYMPHOCYTES % 31.3 % (18.0-39.1); MEAN CORPUSCULAR HEMOGLOBIN 30.2 pg (28-32); MEAN CORPUSCULAR HGB CONC 32.8 g/dL (31-35); MONOCYTES # (AUTO) 0.5 (0.2-0.8); MONOCYTES % 8.9 % (4.4-11.3); NEUTROPHILS # (AUTO) 2.9 (2.1-6.9); NEUTROPHILS % 54.1 % (38.7-80.0); PLATELET COUNT 171 x10e3/uL (140-360); RED BLOOD COUNT 4.24 x10e6/uL (4.3-5.7); RED CELL DISTRIBUTION WIDTH 13.8 % (11.7-14.4)
[2019-08-21 17:16] LABS: INR 1.57; PROTHROMBIN TIME 19.4 seconds (11.9-14.5)
[2019-08-21 17:24] LABS: ANION GAP 11.4 mmol/L (8-16); CALCIUM 9.1 mg/dL (8.4-10.2); CREATININE, SERUM 1.54 mg/dL (0.72-1.25); POTASSIUM 4.4 mmol/L (3.5-5.1)
[2019-08-21] MEDS: HEPARIN 25,000 UNIT 1,400 UNIT in DEXTROSE 5% 250ML 250 ML IV SCH (19:15)
--- NOTE | 2019-08-21 19:15 | NUR ---
Received the pt from morning Rn.pt is lyeing in the bed.aaox3.ambulates.heparin drip is running to right for arm @ 665units/hr.bed locked and in lowest position.phone and call light within reach.instructed to call for assistance as needed.
[2019-08-21] MEDS: SIMVASTATIN 20 MG TAB PO SCH (21:02)
[2019-08-22] VITALS (9 sets, daily range): BP systolic 121–152; BP diastolic 66–78
--- NOTE | 2019-08-22 03:56 | NUR ---
Stitches removed.patient tolerated well.
[2019-08-22 05:47] LABS: BASOPHILS % 0.4 % (0.0-1.0); EOSINOPHILS # (AUTO) 0.3 (0.0-0.4); EOSINOPHILS % 4.9 % (0.0-6.0); HEMATOCRIT 39.2 % (38.2-49.6); LYMPHOCYTES # (AUTO) 1.8 (1.0-3.2); LYMPHOCYTES % 34.3 % (18.0-39.1); MEAN CORPUSCULAR HGB CONC 33.2 g/dL (31-35); MEAN CORPUSCULAR VOLUME 90.5 fL (81-99); MONOCYTES # (AUTO) 0.4 (0.2-0.8); MONOCYTES % 8.1 % (4.4-11.3); NEUTROPHILS # (AUTO) 2.8 (2.1-6.9); NEUTROPHILS % 51.9 % (38.7-80.0); PLATELET COUNT 180 x10e3/uL (140-360); RED BLOOD COUNT 4.33 x10e6/uL (4.3-5.7); RED CELL DISTRIBUTION WIDTH 13.9 % (11.7-14.4)
[2019-08-22 06:35] LABS: ALBUMIN 3.4 g/dL (3.5-5.0); ALBUMIN/GLOBULIN RATIO 1.1 (0.8-2.0); ANION GAP 12.8 mmol/L (8-16); CALCIUM 9.5 mg/dL (8.4-10.2); CREATININE, SERUM 1.43 mg/dL (0.72-1.25); POTASSIUM 3.8 mmol/L (3.5-5.1)
--- NOTE | 2019-08-22 06:57 | NUR ---
BED SIDE SHIFT REPORT GIVEN TO THE ONCOMING RN.STABLE CONDITION.
[2019-08-22 06:59] LABS: INR 1.73; PROTHROMBIN TIME 20.9 seconds (11.9-14.5)
--- NOTE | 2019-08-22 07:00 | NUR ---
MORNING PTT 77.6 NO CHANGE IN RATE ACCORDING TO PROTOCOL HEPARIN DRIP REMAINS AT 665 UNITS/HR NEXT PTT TOMORROW AM
--- NOTE | 2019-08-22 07:15 | NUR ---
RECEIVED PATIENT RESTING IN BED NO SIGNS OF DISTRESS. BED LOW, WHEELS LOCKED, SIDE RAILS X2. CALL LIGHT IN REACH WILL CONTINUE TO MONITOR PATIENT.
[2019-08-22] MEDS: PRIMIDONE 250 MG TABLET PO SCH ×2 (08:01→16:38)
[2019-08-22] MEDS: GLIMEPIRIDE 2 MG TAB PO SCH (08:01)
[2019-08-22] MEDS: PROPRANOLOL HCL 60 MG ER CAP PO SCH ×2 (08:01→16:38)
[2019-08-22] MEDS: TAMSULOSIN HCL 0.4 MG CAP PO SCH (08:01)
[2019-08-22] MEDS: LISINOPRIL 2.5 MG TAB PO SCH (08:01)
[2019-08-22] MEDS: SITAGLIPTIN 100 MG TAB PO SCH (08:01)
[2019-08-22] MEDS ORDERED: OZEMPIC 0.5 MG SQ SCH (10:30)
[2019-08-22] MEDS: HEPARIN 25,000 UNIT 1,400 UNIT in DEXTROSE 5% 250ML 250 ML IV SCH (10:45)
--- NOTE | 2019-08-22 11:00 | NUR ---
PATIENT A/O X3, EVEN RESPIRATIONS ON 1LNC. BOWEL SOUNDS ACTIVE, NO EDEMA. RIGHT FA 20 GAUGE IV WITH HEPARIN DRIP INFUSING AT 665 UNITS/HR. PATIENT AMBULATES WITH STANDBY ASSIST. VS STABLE. CALL LIGHT IN REACH WILL CONTINUE TO MONITOR PATIENT.
[2019-08-22] MEDS: WARFARIN SOD 5 MG TAB PO SCH (16:38)
[2019-08-22] MEDS: SIMVASTATIN 20 MG TAB PO SCH (20:52)
--- NOTE | 2019-08-22 21:40 | NUR ---
PULMONARY MEDICINE Date of encounter: 08/22/19 SUBJECTIVE: eating well BM heparin IV walking, no dizziness nor excess sob REVIEW OF SYSTEMS: No headaches, no rash OBJECTIVE: VITAL SIGNS: vital signs noted and reviewed per electronic record GENERAL: No distress, calm in bed. HEENT: Normocephalic, mild swelling to right cheek NECK: Supple. Throat midline. LUNGS: Bilateral air entry, limited, but clear. CARDIOVASCULAR: S1 and S2. No murmurs, rubs, or gallops. ABDOMEN: Soft, nontender. EXTREMITIES: No clubbing. No cyanosis. no edema. INTEGUMENT: No rash. No purpura. LABORATORY DATA: inr 1.7 IMPRESSION AND PLAN: 1. Submassive pulmonary embolism. 2. Syncope with injury, due to pulmonary embolism. 3. Allergic rhinitis. 4. Gastroesophageal reflux disease. 5. Hypertension. 6. Diabetes. 7. Chronic kidney disease. 8. Hyperlipidemia. Heparin drip IV Warfarin loading continue, repeat AM INR Lifetime need for anticoagulation apparent echocardiogram - no severe right heart strain supplemental oxygen while convenient in the hospital, mobilization as tolerated Thank you very much, Dr. Goemz and Dr. Evans, for allowing me a chance to participate in care of Mr. Gr. Please call for questions
--- NOTE | 2019-08-22 23:04 | NUR ---
Assessment done.no resp.distress.no pain voiced.heparin drip running to right for arm 665units/hr.voided.bed locked and in lowest position.phone and call light within reach.instructed to call for assistance as needed.
[2019-08-23] VITALS (8 sets, daily range): BP systolic 115–128; BP diastolic 65–82
[2019-08-23 06:31] LABS: BASOPHILS % 0.4 % (0.0-1.0); EOSINOPHILS # (AUTO) 0.3 (0.0-0.4); EOSINOPHILS % 5.1 % (0.0-6.0); HEMATOCRIT 39.1 % (38.2-49.6); LYMPHOCYTES # (AUTO) 1.9 (1.0-3.2); MEAN CORPUSCULAR HEMOGLOBIN 30.1 pg (28-32); MEAN CORPUSCULAR HGB CONC 33.2 g/dL (31-35); MEAN CORPUSCULAR VOLUME 90.5 fL (81-99); MONOCYTES # (AUTO) 0.6 (0.2-0.8); MONOCYTES % 10.9 % (4.4-11.3); NEUTROPHILS # (AUTO) 2.6 (2.1-6.9); NEUTROPHILS % 48.1 % (38.7-80.0); PLATELET COUNT 184 x10e3/uL (140-360); RED BLOOD COUNT 4.32 x10e6/uL (4.3-5.7); RED CELL DISTRIBUTION WIDTH 13.8 % (11.7-14.4)
[2019-08-23 06:45] LABS: INR 1.85
[2019-08-23 06:47] LABS: PARTIAL THROMBOPLASTIN TIME 81.3 seconds (23.8-35.5)
[2019-08-23 06:51] LABS: ANION GAP 11.8 mmol/L (8-16); CALCIUM 9.5 mg/dL (8.4-10.2); CREATININE, SERUM 1.56 mg/dL (0.72-1.25); POTASSIUM 3.8 mmol/L (3.5-5.1)
--- NOTE | 2019-08-23 07:05 | NUR ---
Received patient mid fowlers position, side rails upx2, call light within reach. AAOX3 to time, person, place. Respirations even and unlabored. O2 1L NC. Heparin 6.7ml/hr via right FA IV. Instructed to use call light for assistance. Voiced understanding. Will continue to monitor.
--- NOTE | 2019-08-23 07:17 | NUR ---
BED SIDE SHIFT REPORT GIVEN TO THE ONCOMING RN.STABLE CONDITION.
--- NOTE | 2019-08-23 07:42 | NUR ---
PTT81.3. Heparin decreased by 100 units/hour. Heparin now 5.7ml/hr per protocol
[2019-08-23] MEDS ORDERED: ONDANSETRON HCL 4 MG ORAL DISINTEGRATING TAB PO PRN (08:45)
[2019-08-23] MEDS: PROPRANOLOL HCL 60 MG ER CAP PO SCH ×2 (09:03→17:12)
[2019-08-23] MEDS: TAMSULOSIN HCL 0.4 MG CAP PO SCH (09:03)
[2019-08-23] MEDS: LISINOPRIL 2.5 MG TAB PO SCH (09:03)
[2019-08-23] MEDS: SITAGLIPTIN 100 MG TAB PO SCH (09:03)
[2019-08-23] MEDS: PRIMIDONE 250 MG TABLET PO SCH ×2 (09:03→17:12)
[2019-08-23] MEDS: GLIMEPIRIDE 2 MG TAB PO SCH (09:04)
--- NOTE | 2019-08-23 12:40 | NUR ---
PULMONARY MEDICINE Date of encounter: 08/23/19 SUBJECTIVE: heparin iv no bleeding no dizziness when walking on oxygen 2 L/min by nasal cannula REVIEW OF SYSTEMS: No headaches, no rash OBJECTIVE: VITAL SIGNS: vital signs noted and reviewed per electronic record GENERAL: No distress, calm in bed. HEENT: Normocephalic, mild swelling to right cheek NECK: Supple. Throat midline. LUNGS: Bilateral air entry, limited, but clear. CARDIOVASCULAR: S1 and S2. No murmurs, rubs, or gallops. ABDOMEN: Soft, nontender. EXTREMITIES: No clubbing. No cyanosis. no edema. INTEGUMENT: No rash. No purpura. LABORATORY DATA: INR 1.85 IMPRESSION AND PLAN: 1. Submassive pulmonary embolism. 2. Syncope with injury, due to pulmonary embolism. 3. Allergic rhinitis. 4. Gastroesophageal reflux disease. 5. Hypertension. 6. Diabetes. 7. Chronic kidney disease. 8. Hyperlipidemia. Heparin drip IV Warfarin loading continue, repeat AM INR Lifetime anticoagulation echocardiogram - no severe right heart strain supplemental oxygen while convenient in the hospital, mobilization as tolerated Thank you very much, Dr. Gomez and Dr. Evans, for allowing me a chance to participate in care of Mr. Gr. Please call for questions
--- NOTE | 2019-08-23 13:12 | NUR ---
Nutrition follow up note RD Recommendation(s) for Physician / Nutrition Prescription: continue with diet as prescribed Plan of Care: Patient has been screened and assessed for nutrition risk. At this time, the patient does not pose any nutrition risk. No further nutrition intervention is warranted at this time. Will re-evaluate if consulted by medical staff. Nutrition reason for involvement: Diet education consult Primary Dx: Submassive pulmonary embolism PMH: Hypertension and diabetes Ht: 69in Wt: 180lb- admit wt, current wt 197# BMI: 26.6kg/m2 IBW: 160lb +/- 10% RD Assessment: 08/23: Pt seen today per MD consult for Coumadin diet education. Pt receptive to diet education at time of visit. Pt educated on vitamin K sources in diet and high K foods to limit or avoid. Explained the importance of consistent K intake while on Coumadin/Warfarin. Handout provided, all questions addressed at time of visit. Chart reviewed. Labs and meds reviewed. Pt with good po intake and no GI distress. (08/19) 74yo M, who was admitted for pulmonary embolism. Visited pt in the room. Pt reported good appetite with 100% observed lunch intake. No GI complains reported. Pt denied any chewing or swallowing difficulty. No change with diet at home and weight has been stable. Current diet is appropriate and adequate. Malnutrition Evaluation (08/19/19) The patient does not meet criteria for a specified degree of malnutrition at this time. Will re-evaluate at follow-up as appropriate. Diet Education Needs Assessment: Diet education indicated, pt receptive. Learner(s): pt Barriers: none Cultural/Language Modifications: none Readiness: ready Method: handout, discussion Topics: Coumadin, vitamin K foods and recommended intake Understanding/Compliance: good Nutrition Care Level: Low Signed: Nimco Sahni RD, LD, [facility]
--- NOTE | 2019-08-23 14:16 | NUR ---
PTT 56.8. Heparin to continue at 5.7 ml/hr per protocol
[2019-08-23] MEDS: WARFARIN SOD 5 MG TAB PO SCH (17:13)
--- NOTE | 2019-08-23 18:31 | NUR ---
SPO2 95% on Room Air.
--- NOTE | 2019-08-23 19:05 | NUR ---
received report from day nurse. patient is resting comfortably in bed. bed is in lowest position and call light is within reach. will continue to monitor patient.
--- NOTE | 2019-08-23 19:10 | NUR ---
Report given to oncoming nurse of patient's status. Resting in bed, side rails upx2, call light within reach. AAOX4 to time, person, place, situation. Respirations even and unlabored. Dressing to left knee clean, dry, and intact. Addendum: 08/23/19 at 1919 by AYUSH NGUYEN RN error
--- NOTE | 2019-08-23 19:15 | NUR ---
Report given to oncoming nurse of patient's status. Resting in bed, side rails upx2, call light within reach. AAOX4 to time, person, place, situation. Respirations even and unlabored. Heparin 5.7ml/hr via right FA IV. Denies pain
[2019-08-23] MEDS: SIMVASTATIN 20 MG TAB PO SCH (20:22)
[2019-08-24] VITALS: BP 125/70
[2019-08-24] MEDS: HEPARIN 25,000 UNIT 1,400 UNIT in DEXTROSE 5% 250ML 250 ML IV SCH (02:59)
[2019-08-24 04:00] VITALS: BP 120/67
[2019-08-24 05:42] LABS: INR 2.08; PROTHROMBIN TIME 24.1 seconds (11.9-14.5)
--- NOTE | 2019-08-24 06:45 | NUR ---
report given to day nurse. patient is resting comfortably in bed. bed is in lowest position and call light is within reach.
--- NOTE | 2019-08-24 07:05 | NUR ---
Received patient mid fowlers position, side rails upx2, call light within reach. AAOX4 to time, person, place, situation. Respirations even and unlabored. Heparin 5.7ml/hr via right FA IV. Instructed to use call light for assistance. Voiced understanding.
[2019-08-24 07:45] VITALS: BP 123/75
[2019-08-24 07:50] VITALS: BP 123/75
[2019-08-24] MEDS: SITAGLIPTIN 100 MG TAB PO SCH (08:51)
[2019-08-24] MEDS: GLIMEPIRIDE 2 MG TAB PO SCH (08:51)
[2019-08-24] MEDS: PROPRANOLOL HCL 60 MG ER CAP PO SCH (08:51)
[2019-08-24] MEDS: LISINOPRIL 2.5 MG TAB PO SCH (08:51)
[2019-08-24] MEDS: TAMSULOSIN HCL 0.4 MG CAP PO SCH (08:51)
[2019-08-24] MEDS: PRIMIDONE 250 MG TABLET PO SCH (08:51)
[2019-08-24] MEDS ORDERED: COUMADIN7.5 MG PO (10:28)
[2019-08-24 11:40] VITALS: BP 127/71
--- NOTE | 2019-08-24 12:04 | NUR ---
Right Forearm IV discontinued. No signs of infiltration noted. 2x2 gauze and tape placed. Taken via wheelchair by PCT to personal car. Accompanied by AAOX4 to time, person, place, situation. Respirations even and unlabored. Discharge instructions, rx, and all personal belongings taken with patient.
--- NOTE | 2019-08-24 12:26 | NUR ---
PULMONARY MEDICINE Date of encounter: 08/24/19 SUBJECTIVE: heparin iv ongoing, stopped coumadin now therapeutic REVIEW OF SYSTEMS: No headaches, no rash OBJECTIVE: VITAL SIGNS: vital signs noted and reviewed per electronic record GENERAL: No distress, calm in bed. HEENT: Normocephalic, mild swelling to right cheek NECK: Supple. Throat midline. LUNGS: Bilateral air entry, limited, but clear. CARDIOVASCULAR: S1 and S2. No murmurs, rubs, or gallops. ABDOMEN: Soft, nontender. EXTREMITIES: No clubbing. No cyanosis. no edema. INTEGUMENT: No rash. No purpura. LABORATORY DATA: INR 2.08 IMPRESSION AND PLAN: 1. Submassive pulmonary embolism. 2. Syncope with injury, due to pulmonary embolism. 3. Allergic rhinitis. 4. Gastroesophageal reflux disease. 5. Hypertension. 6. Diabetes. 7. Chronic kidney disease. 8. Hyperlipidemia. Heparin drip dc Warfarincontinue, outpatient INR Lifetime anticoagulation echocardiogram - no severe right heart strain supplemental oxygen while convenient in the hospital, mobilization as tolerated Thank you very much, Dr. Gomez and Dr. Evans, for allowing me a chance to participate in care of Mr. Gr. Please call for questions
== END 2019-08-24 12:04 | disposition home or self-care (01) | DRG 176 ==
LOC: ER 10:26 → ERHOLD 14:01 → ICU 16:56 → MED/SURG 08-17 12:21
DX: I26.99 Other pulmonary embolism without acute cor pulmonale (principal); I82.431 Acute embolism and thrombosis of right popliteal vein; N17.9 Acute kidney failure, unspecified; E11.65 Type 2 diabetes mellitus with hyperglycemia; J30.9 Allergic rhinitis, unspecified; R55 Syncope and collapse; Z88.2 Allergy status to sulfonamides; K21.9 Gastro-esophageal reflux disease without esophagitis; S01.411A Laceration without foreign body of right cheek and temporomandibular area, initial encounter; E78.5 Hyperlipidemia, unspecified; E11.22 Type 2 diabetes mellitus with diabetic chronic kidney disease; I12.9 Hypertensive chronic kidney disease with stage 1 through stage 4 chronic kidney disease, or unspecified chronic kidney disease; N18.9 Chronic kidney disease, unspecified; E87.5 Hyperkalemia; E88.09 Other disorders of plasma-protein metabolism, not elsewhere classified; N20.0 Calculus of kidney; Z85.828 Personal history of other malignant neoplasm of skin; W01.190A Fall on same level from slipping, tripping and stumbling with subsequent striking against furniture, initial encounter; Y93.89 Activity, other specified; Y92.013 Bedroom of single-family (private) house as the place of occurrence of the external cause; Z80.1 Family history of malignant neoplasm of trachea, bronchus and lung; Z83.3 Family history of diabetes mellitus; I25.10 Atherosclerotic heart disease of native coronary artery without angina pectoris; Z79.84 Long term (current) use of oral hypoglycemic drugs
CPT/HCPCS: 36415; 70450; 71260; 80048; 80053; 80061; 81241; 81400; 82270; 82550; 82553; 82948; 83880; 84443; 84484; 85025; 85303; 85306; 85379; 85610; 85730; 86022; 93005; 93306; 93970; 96361; 99285; J1644; J2001; J2270; J2405; J7030; Q9967

== ENCOUNTER 2021-06-27 16:43 | Emergency (ER) | payer MEDICARE, OTHER ==
[~2021-06-27] VITALS: Ht 175.3 cm; Wt 89.4 kg
[~2021-06-27 16:43] MED LIST changes: +COUMADIN7.5 MG PO; +FLOMAX0.4 MG PO; +GLIMEPIRIDE4 MG PO; +JANUVIA50 MG PO; +LISINOPRIL5 MG PO; +MYSOLINE250 MG PO; +OZEMPIC SQ; +PROPRANOLOL HCL60 MG PO; +SIMVASTATIN20 MG PO
[2021-06-27 18:41] LABS: BASOPHILS % 0.1 % (0.0-1.0); EOSINOPHILS # (AUTO) 0.1 (0.0-0.4); EOSINOPHILS % 1.4 % (0.0-6.0); HEMATOCRIT 44.7 % (38.2-49.6); HEMOGLOBIN 14.9 g/dL (14.0-18.0); LYMPHOCYTES # (AUTO) 1.6 (1.0-3.2); LYMPHOCYTES % 19.5 % (18.0-39.1); MEAN CORPUSCULAR HEMOGLOBIN 30.3 pg (28-32); MEAN CORPUSCULAR HGB CONC 33.3 g/dL (31-35); MEAN CORPUSCULAR VOLUME 90.9 fL (81-99); MONOCYTES # (AUTO) 0.8 (0.2-0.8); MONOCYTES % 9.5 % (4.4-11.3); NEUTROPHILS # (AUTO) 5.5 (2.1-6.9); NEUTROPHILS % 69.2 % (38.7-80.0); PLATELET COUNT 174 x10e3/uL (140-360); RED BLOOD COUNT 4.92 x10e6/uL (4.3-5.7); RED CELL DISTRIBUTION WIDTH 13.2 % (11.7-14.4)
[2021-06-27 18:56] LABS: INR 2.25
[2021-06-27 18:58] LABS: ALBUMIN 3.9 g/dL (3.5-5.0); ALBUMIN/GLOBULIN RATIO 1.1 (0.8-2.0); ANION GAP 14.3 mmol/L (8-16); CALCIUM 9.7 mg/dL (8.4-10.2); CREATININE, SERUM 1.57 mg/dL (0.72-1.25); POTASSIUM 4.3 mmol/L (3.5-5.1)
[2021-06-27 19:01] LABS: PARTIAL THROMBOPLASTIN TIME 47.1 seconds (23.8-35.5)
[2021-06-27 19:06] LABS: CREATINE KINASE MB 0.8 ng/mL (0-5.0)
[2021-06-27] MEDS ORDERED: IOPAMIDOL 370 MG/ML 200 ML INFUS..BTL INJ ONE (19:19)
[2021-06-27] MEDS ORDERED: SODIUM CHLORIDE 0.9% 50ML 50 ML ONE (19:19)
[2021-06-27] MEDS: SODIUM CHLORIDE 0.9% 1000ML 1,000 ML IV ONE (19:43)
[2021-06-27 21:15] VITALS: BP 129/80
== END 2021-06-27 21:16 | disposition home or self-care (01) ==
LOC: ER 17:28
DX: R09.1 Pleurisy (principal); R06.00 Dyspnea, unspecified; I10 Essential (primary) hypertension; E11.65 Type 2 diabetes mellitus with hyperglycemia; E78.5 Hyperlipidemia, unspecified; R91.8 Other nonspecific abnormal finding of lung field; Z85.828 Personal history of other malignant neoplasm of skin; Z86.718 Personal history of other venous thrombosis and embolism
CPT/HCPCS: 36415; 71260; 80053; 82550; 82553; 84484; 85025; 85379; 85610; 85730; 93005; 99284; J7030; Q9967